=== PATIENT | male | born 1955 | race Caucasian/White ===

== ENCOUNTER 2020-02-10 11:43 | Emergency (ER) | payer OTHER ==
[~2020-02-10] VITALS: Ht 172.7 cm; Wt 86.2 kg
[~2020-02-10 11:43] MED LIST: Percocet 5-3251 EACH PO
[2020-02-10 12:40] LABS: BASOPHILS ABSOLUTE AUTO 0.07 K/mm3 (0.00-0.23); BASOPHILS PERCENT AUTO 1 % (0-2); EOSINOPHILS PERCENT AUTO 5 % (0-6); Hemoglobin 14.9 g/dL (13.5-17.5); IMMATURE GRAN ABSOLUTE AUTO 0.01 K/mm3 (0.00-0.10); IMMATURE GRAN PERCENT AUTO 0 % (0-1); LYMPHOCYTES ABSOLUTE AUTO 2.35 K/mm3 (0.84-5.20); LYMPHOCYTES PERCENT AUTO 30 % (21-46); MONOCYTES ABSOLUTE AUTO 0.79 K/mm3 (0.16-1.47); MONOCYTES PERCENT AUTO 10 % (4-13); Mean Corpuscular HGB 30.2 pg (26.0-34.0); Mean Corpuscular HGB Conc 33.9 g/dL (31.5-36.5); Mean Corpuscular Volume 89 fL (80-100); Mean Platelet Volume 9.6 fL (9.1-12.4); NEUTROPHILS ABSOLUTE AUTO 4.24 K/mm3 (1.96-9.15); NEUTROPHILS PERCENT AUTO 54 % (41-73); Platelet Count 224 K/mm3 (150-400); RDW Standard Deviation 42.6 fL (35.1-46.3); Red Blood Cell Count 4.93 M/mm3 (4.30-5.90); White Blood Cell Count 7.86 K/mm3 (4.00-11.30)
[2020-02-10 12:56] LABS: Alanine Aminotransfer (ALT/SGP 32 U/L (12-78); Albumin, Blood 3.8 g/dL (3.4-5.0); Albumin/Globulin Ratio 1.2 (0.8-1.8); Alk Phos 51 U/L (50-136); Anion Gap 7 mmol/L (6-16); Aspartate Aminotrans (AST/SGOT 18 U/L (12-37); Bilirubin, Total 0.4 mg/dL (0.1-1.0); Blood Urea Nitrogen 21 mg/dL (8-24); Bun/Creatinine Ratio 21.8 (12.0-20.0); CO2, Blood 24 mmol/L (21-32); Calcium, Blood 8.6 mg/dL (8.5-10.1); Chloride, Blood 109 mmol/L (98-108); Creatinine, Blood 0.97 mg/dL (0.60-1.20); Globulin, Blood 3.3 g/dL (2.2-4.0); Glomerular Filtration Rate >60 (60-); Glucose, Blood 104 mg/dL (70-99); Potassium, Blood 3.8 mmol/L (3.5-5.5); Sodium, Blood 140 mmol/L (136-145); Total Protein, Blood 7.1 g/dL (6.4-8.2)
[2020-02-10] MEDS ORDERED: MECL25 PO (13:34)
[2020-02-10] MEDS ORDERED: AMOCLA875 PO (13:34)
[2020-02-10] MEDS ORDERED: Prednisone20 MG PO (13:34)
== END 2020-02-10 14:20 | disposition home or self-care (01) ==
LOC: ER 11:43
PROVIDERS: Emergency Medicine
DX: R42 Dizziness and giddiness (principal); M47.812 Spondylosis without myelopathy or radiculopathy, cervical region; J01.90 Acute sinusitis, unspecified; Z88.5 Allergy status to narcotic agent; Z85.46 Personal history of malignant neoplasm of prostate; Z87.891 Personal history of nicotine dependence
CPT/HCPCS: 70450; 72040; 80053; 85025; 93005; 93010; 99284-25

== ENCOUNTER 2023-03-18 10:25 | Day surgery (SDC) | payer OTHER ==
[2023-03-18] VITALS (10 sets, daily range): BP systolic 116–138; BP diastolic 65–89
[~2023-03-18] VITALS: Ht 172.7 cm; Wt 87.0 kg
[~2023-03-18 10:25] MED LIST changes: +AMOCLA875 PO; +MECL25 PO; +Norco 5-325 Ta1 EACH PO; +PRED20 PO; +Prednisone20 MG PO
--- NOTE | 2023-03-18 11:45 | NUR ---
Wheelchair in Day Surgery. History, Chart, Medications and Allergies reviewed before start of procedure. Lungs clear T/O to Auscultation. Patient confirms NPO status and agrees with scheduled surgery. Pre-Op teaching done. Pt verbalizes understanding. Patient States Post-Procedure ride home has been arranged.
--- NOTE | 2023-03-18 12:57 | NUR ---
12:57 - NERVE BLOCK TIMEOUT PERFORMED WITH DR JOYNER
--- NOTE | 2023-03-18 15:24 | NUR ---
REPORT RECEIVED FROM KYLIE MARTÍNEZ. VSS. PT ABLE TO REPOSITION SELF IN BED. PT REQUESTING PO FOOD AND FLUIDS AND TOLERATING THEM WELL. PT HAS [place] WRAP AND SPLINT TO LEFT ANKLE. WRAP IS C/D/I WITHOUT DRAINAGE, REDNESS, OR SWELLING. ANKLE IS ELEVATED WITH PILLOWS. PT CAN WIGGLE TOES FREELY ON OPERATIVE FOOT. PT IS WARM TO TOUCH AND HAS BRISK CAPILLARY REFILL. PT DENIES PAIN, NAUSEA, OR OTHER DISCOMFORTS AT THIS TIME.
--- NOTE | 2023-03-18 16:00 | NUR ---
Patient up to Ambulate independently. Gait steady. VSS AND CONSISTENT WITH PT BASELINE. PT DENIES PAIN OR NAUSEA AND VERBALIZES READINESS TO GO HOME. Discharge instructions reviewed with patient. Patient verbalizes understanding. Copy given to patient to take home. Dressing to procedure site clean, dry, intact with no visible drainage, swelling, erythema or bruising noted. PT HAS BRISK CAPILLARY REFILL AND CAN MOVE TOES FREELY TO OPERATIVE SIDE. Patient States Post-Procedure ride home has been arranged. Discharged via wheelchair to private car for ride home. PT BELONGINGS RETURNED TO PT.
== END 2023-03-18 16:04 | disposition home or self-care (01) ==
LOC: ORSCMMR 10:25 → ORD 13:15 → ORSCMMR 13:15
PROVIDERS: Orthopaedic Surgery
PROC: 0QSK04Z Reposition Left Fibula with Internal Fixation Device, Open Approach (ICD-10-PCS; principal; 2023-03-18 13:15)
DX: S82.842A Displaced bimalleolar fracture of left lower leg, initial encounter for closed fracture (principal)
CPT/HCPCS: C1713; J0690; J2704; J3010; J7120

== ENCOUNTER 2024-05-22 10:20 | Day surgery (SDC) | payer OTHER ==
[2024-05-22] VITALS (14 sets, daily range): BP systolic 132–158; BP diastolic 75–99
[~2024-05-22] VITALS: Ht 170.2 cm; Wt 88.2 kg
[~2024-05-22 10:20] MED LIST changes: +C COMPLEX1000 M1 PO; +CALCIUM-MAGNES1 EAC9 PO; +CENTRUM SILVER1 EAC2 PO; +CIDAFLEX TABLE1 EAC1; +CINNAMON EXTRA500 MG; +CeFAZolin Sodium 2,000 MG in NS 100 ML IV SCH; +Dexamethasone Sod Phos 10 MG/ML 1ML VIAL ONE; +FOCUS FACTOR; +FentaNYL Citrate 50 MCG/ML 5 ML Injection ONE; +IMMUNE; +Ketorolac Tromethamine 30mg Vial ONE; +Lactated Ringer's 1,000 ML IV SCH; +Ondansetron HCl 2 MG / ML 2ML Vial ONE; +Rocuronium Bromide 10 MG/ML 5ML Injection IV ONE; +Sugammadex Sodium 200 MG/2ML SDV (100 MG/ML) ONE; +UBID10; +Vitamin B Comple1 EA PO; +propofoL 20 ML IV ONE
--- NOTE | 2024-05-22 10:32 | NUR ---
History, Chart, Medications and Allergies reviewed before start of procedure. Patient confirms NPO status and agrees with scheduled surgery. Patient States Post-Procedure ride home has been arranged with friend, Lydia, who patient requests be at bedside pre-op.
[2024-05-22] MEDS ORDERED: SILDENAFIL CIT100 MG PO (10:36)
[2024-05-22] MEDS ORDERED: ACYCLOVIR800 MG PO (10:36)
[2024-05-22] MEDS ORDERED: NAPR220 PO (10:38)
[2024-05-22] MEDS ORDERED: FLUTICASONE P15.8 M1 (10:41)
[2024-05-22] MEDS ORDERED: Bupivacaine 0.5% HCl 5 MG/ML 30MLVIAL ONE (11:21)
[2024-05-22] MEDS ORDERED: Rocuronium Bromide 10 MG/ML 5ML Injection IV ONE (13:03)
[2024-05-22] MEDS ORDERED: FentaNYL Citrate 50 MCG/ML 5 ML Injection ONE (14:36)
[2024-05-22] MEDS ORDERED: OxyCODONE 5 mg/Acetamin 325 mg TABLET PO PRN (16:00)
--- NOTE | 2024-05-22 17:06 | NUR ---
Patient up to Ambulate independently. Gait steady. Discharge instructions reviewed with patient. Patient verbalizes understanding. Copy given to patient to take home, [facility]. Patient States Post-Procedure ride home has been arranged. Discharged via wheelchair to private car for ride home. PT TOLERATING PO. REPORTS PAIN TOLERABLE. INCISIONS C/D/I. REPORTS READY TO GO HOME.
== END 2024-05-22 17:06 | disposition home or self-care (01) ==
LOC: ORSCMMR 10:20 → ORD 13:15 → ORSCMMR 13:15
PROVIDERS: Surgery
PROC: 0YUA4JZ Supplement Bilateral Inguinal Region with Synthetic Substitute, Percutaneous Endoscopic Approach (ICD-10-PCS; principal; 2024-05-22 13:15)
PROC: 8E0W4CZ Robotic Assisted Procedure of Trunk Region, Percutaneous Endoscopic Approach (ICD-10-PCS; principal; 2024-05-22 13:15)
DX: K40.20 Bilateral inguinal hernia, without obstruction or gangrene, not specified as recurrent (principal); Z87.891 Personal history of nicotine dependence; Z79.899 Other long term (current) drug therapy
CPT/HCPCS: A9270; C1781; J0690; J1100; J1885; J2405; J2704; J3010; J7120